=== PATIENT | male | born 1955 | race Caucasian/White ===

== ENCOUNTER → 2016-07-18 | Outpatient (CLI) | payer BC ==
[~2016-07-18] VITALS: Ht 170.2 cm; Wt 100.7 kg
[~2016-07-18] MED LIST: DAILY VALUE1 EACH PO; VITAMIN C100 MG PO
== END | disposition home or self-care (01) ==
LOC: AMB 12:26
PROC: 0DJD8ZZ Inspection of Lower Intestinal Tract, Via Natural or Artificial Opening Endoscopic (ICD-10-PCS; principal; 2016-07-18)
DX: Z12.11 Encounter for screening for malignant neoplasm of colon (principal); K57.30 Diverticulosis of large intestine without perforation or abscess without bleeding; K64.8 Other hemorrhoids; Z68.34 Body mass index [BMI] 34.0-34.9, adult; E66.9 Obesity, unspecified; Z82.3 Family history of stroke; Z82.49 Family history of ischemic heart disease and other diseases of the circulatory system; Z88.0 Allergy status to penicillin
CPT/HCPCS: J2250